=== PATIENT | male | born 1955 | race African-American/Black ===

== ENCOUNTER 2021-04-15 17:15 | Inpatient (IN) | payer MEDICARE, MEDICAID ==
[~2021-04-15] VITALS: Ht 190.5 cm; Wt 96.2 kg
[2021-04-15] MEDS ORDERED: ACETAMINOPHEN 325MG TABLET PO STA (19:27)
[2021-04-15] MEDS ORDERED: SODIUM CHLORIDE 0.9% 1000ML BAG (SEPSIS BOLUS) IV ONE (19:30)
[2021-04-15] MEDS ORDERED: PIPERACILLIN/TAZ 3.375G PREMIX 50 ML IV ONE (19:30)
[2021-04-15] MEDS ORDERED: VANCOMYCIN 1 G PREMIX 200 ML IV ONE (19:30)
[2021-04-15 19:55] LABS: BG BASE EXCESS -1.1 mmol/L (-2.0-2.0); BG CARBOXYHEMOGLOBIN 0.7 % (0.5-1.5); BG DEOXYHEMOGLOBIN 3.2 % (0.0-5.0); BG HCO3 ACT 23.3 mmol/L (22.0-26.0); BG METHEMOGLOBIN 0.3 % (0.0-1.5); BG OXYGEN SATURATION 96.8 % (92.0-98.5); BG OXYHEMOGLOBIN 95.8 % (94.0-97.0); BG PCO2 37.4 mmHg (35.0-45.0); BG PH 7.413 (7.350-7.450); BG TOTAL HEMOGLOBIN 8.1 g/dL (12.0-18.0)
[2021-04-15 20:13] LABS: CLARITY URINE TURBID (CLEAR); COLOR URINE DARK YELLOW (YELLOW); KETONES URINE 1+ (NEGATIVE); LEUKOCYTE ESTERASE URINE 3+ (NEGATIVE); NITRITE URINE NEGATIVE (NEGATIVE); OCCULT BLOOD URINE 2+ (NEGATIVE); PROTEIN URINE 2+ (NEGATIVE); SPECIFIC GRAVITY URINE 1.024 (1.005-1.030)
[2021-04-15 21:04] LABS: BASOPHILS % 0.5 % (0.0-2.0); EOSINOPHILS % 0.1 % (0.0-5.0); HEMATOCRIT. 22.8 % (42.0-52.0); HEMOGLOBIN. 7.4 g/dL (14.0-18.0); LYMPHOCYTES % 9.3 % (20.0-50.0); MEAN CORPUSCULAR HEMOGLOBIN 25.4 pg (28.0-32.0); MEAN CORPUSCULAR VOLUME 78.6 fL (80.0-94.0); MONOCYTES % 13.5 % (2.0-8.0); NEUTROPHILS % 76.6 % (40.0-76.0); PLATELET 223 x1000/uL (130-400); RED CELL DISTRIBUTION WIDTH 16.3 % (11.6-14.6)
[2021-04-15 21:15] LABS: CHLORIDE 102 mEq/L (98-107)
[2021-04-15 21:22] LABS: INR 1.2; PROTHROMBIN TIME 12.5 sec (9.6-11.0)
[2021-04-15 21:23] LABS: CREATINE KINASE 98 IU/L (39-308)
[2021-04-15 21:33] LABS: C REACTIVE PROTEIN QUANT > 190.0 mg/L (0.0-3.0)
[2021-04-15 21:38] LABS: PLATELET ESTIMATE NORMAL
[2021-04-15] MEDS ORDERED: SODIUM CHLORIDE 0.9% 100 ML IV ONE (21:45)
[2021-04-15] MEDS ORDERED: ACYCLOVIR INJ 750 MG in DEXT 5% WATER 100 ML IV SCH (23:00)
[2021-04-15] MEDS ORDERED: ACETAMINOPHEN 650MG SUPP PR PRN (23:15)
[2021-04-15] MEDS ORDERED: ALBUMIN HUMAN 25GM/100ML (25%) IV PRN ×2 (23:15→23:45)
[2021-04-15] MEDS ORDERED: ONDANSETRON HCL 4MG/2ML INJ IV PRN (23:15)
[2021-04-15] MEDS ORDERED: IPRATROPIUM/ALBUTEROL 0.5-3(2.5)MG/3ML NEB NEB PRN (23:15)
[2021-04-15] MEDS: LACTATED RINGERS 1,000 ML IV SCH (23:31)
[2021-04-16 03:56] LABS: BASOPHILS % 0.4 % (0.0-2.0); EOSINOPHILS % 1.5 % (0.0-5.0); HEMATOCRIT. 22.3 % (42.0-52.0); HEMOGLOBIN. 7.2 g/dL (14.0-18.0); LYMPHOCYTES % 13.1 % (20.0-50.0); MEAN CORPUSCULAR HEMOGLOBIN 25.7 pg (28.0-32.0); MEAN CORPUSCULAR VOLUME 79.7 fL (80.0-94.0); MEAN PLATELET VOLUME 7.7 fl (7.4-10.4); MONOCYTES % 12.9 % (2.0-8.0); NEUTROPHILS % 72.1 % (40.0-76.0); PLATELET 173 x1000/uL (130-400); RED BLOOD CELL COUNT 2.79 mill/uL (4.7-6.1); RED CELL DISTRIBUTION WIDTH 16.7 % (11.6-14.6)
[2021-04-16] MEDS: PIPERACILLIN/TAZOBACTAM 3.375 G in DEXTROSE 5% WATER 50 ML IV SCH ×2 (04:11→14:29)
[2021-04-16 04:59] LABS: CREATINE KINASE 89 IU/L (39-308)
[2021-04-16 05:00] LABS: HDL CHOLESTEROL 16 mg/dL (40-59); LDL CHOLESTEROL 28 mg/dL (5-100)
[2021-04-16] MEDS ORDERED: VANCOMYCIN 750 MG PREMIX 150 ML IV NR (10:00)
[2021-04-16] MEDS: LACTATED RINGERS 1,000 ML IV SCH (11:22)
[2021-04-16] MEDS ORDERED: AMIKACIN 500MG in SODIUM CHLORIDE 0.9% 100ML IV NR (20:30)
[2021-04-16] MEDS ORDERED: HYDRALAZINE 20MG/ML VIAL IV PRN (23:00)
[2021-04-16 23:20] LABS: CREATINE KINASE 340 IU/L (39-308)
[2021-04-16 23:24] LABS: CREATINE KINASE MB FRACTION 1.6 ng/mL (0.5-3.6)
[2021-04-17] VITALS (9 sets, daily range): BP systolic 94–185; BP diastolic 45–97
[2021-04-17] MEDS: LACTATED RINGERS 1,000 ML IV SCH (00:58)
[2021-04-17] MEDS: PIPERACILLIN/TAZOBACTAM 3.375 G in DEXTROSE 5% WATER 50 ML IV SCH ×3 (04:16→18:05)
[2021-04-17 05:37] LABS: CHLORIDE 106 mEq/L (98-107)
[2021-04-17] MEDS: AMLODIPINE 5MG TABLET PO SCH (11:36)
[2021-04-17] MEDS: VANCOMYCIN 750 MG PREMIX 150 ML IV SCH ×2 (11:36→23:31)
[2021-04-17] MEDS: METHYLPREDNISOLONE SOD SUCC 40 MG/ML VIAL IV SCH ×3 (11:36→23:31)
[2021-04-17] MEDS: LORAZEPAM 0.5MG TABLET PO PRN ×2 (12:11→18:29)
[2021-04-17] MEDS ORDERED: IPRATROPIUM/ALBUTEROL 0.5-3(2.5)MG/3ML NEB HHN SCH (16:00)
[2021-04-17] MEDS: CLONIDINE 0.1MG TABLET PO PRN (18:29)
[2021-04-17] MEDS: IPRATROPIUM/ALBUTEROL 0.5-3(2.5)MG/3ML NEB HHN SCH (21:47)
[2021-04-18] VITALS (12 sets, daily range): BP systolic 121–161; BP diastolic 66–93
[2021-04-18] MEDS: IPRATROPIUM/ALBUTEROL 0.5-3(2.5)MG/3ML NEB HHN SCH ×5 (01:26→16:53)
[2021-04-18] MEDS: PIPERACILLIN/TAZOBACTAM 3.375 G in DEXTROSE 5% WATER 50 ML IV SCH ×4 (02:16→23:06)
[2021-04-18] MEDS: METHYLPREDNISOLONE SOD SUCC 40 MG/ML VIAL IV SCH ×3 (05:33→23:05)
[2021-04-18 06:40] LABS: HEMATOCRIT. 25.6 % (42.0-52.0); HEMOGLOBIN. 8.5 g/dL (14.0-18.0); MEAN CORPUSCULAR HEMOGLOBIN 25.7 pg (28.0-32.0); MEAN CORPUSCULAR VOLUME 77.7 fL (80.0-94.0); MEAN PLATELET VOLUME 8.1 fl (7.4-10.4); PLATELET 330 x1000/uL (130-400); RED BLOOD CELL COUNT 3.29 mill/uL (4.7-6.1); RED CELL DISTRIBUTION WIDTH 16.7 % (11.6-14.6)
[2021-04-18 06:43] LABS: CHLORIDE 104 mEq/L (98-107)
[2021-04-18 06:53] LABS: PHOSPHORUS 3.3 mg/dL (2.5-4.9)
[2021-04-18 06:55] LABS: HAPTOGLOBIN 357 mg/dL (30-200)
[2021-04-18] MEDS: VANCOMYCIN 750 MG PREMIX 150 ML IV SCH ×2 (09:20→20:13)
[2021-04-18] MEDS: AMLODIPINE 5MG TABLET PO SCH (09:21)
[2021-04-18] MEDS ORDERED: RISPERIDONE 0.25MG TABLET PO SCH (10:00)
[2021-04-18 10:58] LABS: BG CARBOXYHEMOGLOBIN 0.5 % (0.5-1.5); BG DEOXYHEMOGLOBIN 6.7 % (0.0-5.0); BG HCO3 ACT 17.2 mmol/L (22.0-26.0); BG METHEMOGLOBIN 0.4 % (0.0-1.5); BG OXYGEN SATURATION 93.2 % (92.0-98.5); BG OXYHEMOGLOBIN 92.4 % (94.0-97.0); BG PCO2 26.2 mmHg (35.0-45.0); BG PH 7.434 (7.350-7.450); BG PO2 67.2 mmHg (75.0-100.0); BG SAMPLE SITE LEFT RADIAL; BG TOTAL HEMOGLOBIN 9.6 g/dL (12.0-18.0); BG VENT MODE ROOM AIR
[2021-04-18 14:38] LABS: PLATELET ESTIMATE NORMAL
[2021-04-18] MEDS: RISPERIDONE 0.25MG TABLET PO SCH (20:13)
[2021-04-18] MEDS: CLONIDINE 0.1MG TABLET PO PRN (20:18)
[2021-04-19] VITALS (11 sets, daily range): BP systolic 122–154; BP diastolic 62–79
[2021-04-19] MEDS: PIPERACILLIN/TAZOBACTAM 3.375 G in DEXTROSE 5% WATER 50 ML IV SCH ×3 (05:50→21:17)
[2021-04-19] MEDS: METHYLPREDNISOLONE SOD SUCC 40 MG/ML VIAL IV SCH (05:50)
[2021-04-19 06:03] LABS: HEMATOCRIT. 25.2 % (42.0-52.0); HEMOGLOBIN. 8.1 g/dL (14.0-18.0); MEAN CORPUSCULAR HEMOGLOBIN 25.2 pg (28.0-32.0); MEAN CORPUSCULAR VOLUME 78.2 fL (80.0-94.0); MEAN PLATELET VOLUME 7.7 fl (7.4-10.4); PLATELET 353 x1000/uL (130-400); RED BLOOD CELL COUNT 3.22 mill/uL (4.7-6.1); RED CELL DISTRIBUTION WIDTH 17.3 % (11.6-14.6)
[2021-04-19 06:13] LABS: CHLORIDE 106 mEq/L (98-107)
[2021-04-19 06:20] LABS: PHOSPHORUS 3.3 mg/dL (2.5-4.9)
[2021-04-19 07:15] LABS: PLATELET ESTIMATE NORMAL
[2021-04-19] MEDS ORDERED: DEXTROSE 50% WATER 50ML SYRINGE IV PRN (07:15)
[2021-04-19] MEDS: BLOOD SUGAR DIAGNOSTIC STRIP TEST SCH ×4 (08:10→20:33)
[2021-04-19] MEDS: AMLODIPINE 5MG TABLET PO SCH (08:30)
[2021-04-19] MEDS: RISPERIDONE 0.25MG TABLET PO SCH ×2 (08:30→17:49)
[2021-04-19] MEDS: VANCOMYCIN 750 MG PREMIX 150 ML IV SCH (08:31)
[2021-04-19] MEDS: INSULIN LISPRO 100 UNITS/ML SUBCUT SCH ×4 (08:32→20:32)
[2021-04-19] MEDS: IPRATROPIUM/ALBUTEROL 0.5-3(2.5)MG/3ML NEB HHN SCH ×5 (08:50→23:53)
[2021-04-19] MEDS ORDERED: METHYLPREDNISOLONE SOD SUCC 40 MG/ML VIAL IV SCH (21:00)
[2021-04-19] MEDS ORDERED: VANCOMYCIN 1250MG in DEXTROSE 5% WATER 250ML IV SCH (21:00)
[2021-04-19] MEDS ORDERED: INSULIN GLARGINE UD 100 UNITS/ML SYR SUBCUT SCH (22:00)
[2021-04-20] VITALS (12 sets, daily range): BP systolic 126–157; BP diastolic 57–80
[2021-04-20] MEDS: IPRATROPIUM/ALBUTEROL 0.5-3(2.5)MG/3ML NEB HHN SCH ×5 (03:56→20:44)
[2021-04-20] MEDS: PIPERACILLIN/TAZOBACTAM 3.375 G in DEXTROSE 5% WATER 50 ML IV SCH ×3 (05:14→23:30)
[2021-04-20] MEDS: BLOOD SUGAR DIAGNOSTIC STRIP TEST SCH ×4 (06:24→21:19)
[2021-04-20] MEDS: INSULIN LISPRO 100 UNITS/ML SUBCUT SCH ×5 (07:40→21:22)
[2021-04-20 08:50] LABS: HEMOGLOBIN. 8.1 g/dL (14.0-18.0); LYMPHOCYTES % 8.4 % (20.0-50.0); MEAN CORPUSCULAR HEMOGLOBIN 24.4 pg (28.0-32.0); MEAN CORPUSCULAR VOLUME 78.1 fL (80.0-94.0); MEAN PLATELET VOLUME 7.6 fl (7.4-10.4); MONOCYTES % 8.7 % (2.0-8.0); NEUTROPHILS % 82.9 % (40.0-76.0); PLATELET 373 x1000/uL (130-400); RED BLOOD CELL COUNT 3.34 mill/uL (4.7-6.1); RED CELL DISTRIBUTION WIDTH 17.5 % (11.6-14.6)
[2021-04-20 08:58] LABS: CHLORIDE 111 mEq/L (98-107)
[2021-04-20] MEDS: AMLODIPINE 5MG TABLET PO SCH (08:58)
[2021-04-20] MEDS: RISPERIDONE 0.25MG TABLET PO SCH ×2 (08:59→17:09)
[2021-04-20] MEDS: PREDNISONE 20MG TABLET PO SCH (08:59)
[2021-04-20 09:04] LABS: PHOSPHORUS 2.6 mg/dL (2.5-4.9)
[2021-04-20] MEDS: INSULIN GLARGINE UD 100 UNITS/ML SYR SUBCUT SCH ×2 (10:19→21:23)
[2021-04-20] MEDS ORDERED: POTASSIUM CHLORIDE 20MEQ TABLET SR PO NR (18:15)
[2021-04-21] VITALS (13 sets, daily range): BP systolic 129–156; BP diastolic 55–84
[2021-04-21] MEDS: IPRATROPIUM/ALBUTEROL 0.5-3(2.5)MG/3ML NEB HHN SCH ×6 (00:57→21:32)
[2021-04-21 06:44] LABS: BASOPHILS % 0.1 % (0.0-2.0); EOSINOPHILS % 0.1 % (0.0-5.0); HEMATOCRIT. 26.1 % (42.0-52.0); HEMOGLOBIN. 8.4 g/dL (14.0-18.0); MEAN CORPUSCULAR HEMOGLOBIN 25.3 pg (28.0-32.0); MEAN CORPUSCULAR VOLUME 78.4 fL (80.0-94.0); MEAN PLATELET VOLUME 7.6 fl (7.4-10.4); MONOCYTES % 10.5 % (2.0-8.0); NEUTROPHILS % 77.3 % (40.0-76.0); PLATELET 449 x1000/uL (130-400); RED BLOOD CELL COUNT 3.33 mill/uL (4.7-6.1); RED CELL DISTRIBUTION WIDTH 16.9 % (11.6-14.6)
[2021-04-21] MEDS: BLOOD SUGAR DIAGNOSTIC STRIP TEST SCH ×4 (06:49→21:45)
[2021-04-21 07:20] LABS: CHLORIDE 113 mEq/L (98-107)
[2021-04-21 07:26] LABS: PHOSPHORUS 2.6 mg/dL (2.5-4.9)
[2021-04-21] MEDS: PREDNISONE 20MG TABLET PO SCH (08:11)
[2021-04-21] MEDS: AMLODIPINE 5MG TABLET PO SCH (08:11)
[2021-04-21] MEDS: RISPERIDONE 0.25MG TABLET PO SCH ×2 (08:11→21:43)
[2021-04-21] MEDS: INSULIN LISPRO 100 UNITS/ML SUBCUT SCH ×5 (08:11→21:45)
[2021-04-21] MEDS: INSULIN GLARGINE UD 100 UNITS/ML SYR SUBCUT SCH ×2 (10:53→21:44)
[2021-04-21] MEDS ORDERED: P20 MT (11:23)
[2021-04-21] MEDS ORDERED: LANTUSUD SUBCUT (11:25)
[2021-04-21] MEDS ORDERED: AMLO5TAB88 PO (11:25)
[2021-04-21] MEDS ORDERED: ACETAMINOPHEN 650MG/20.3ML UDC PO PRN (11:45)
[2021-04-21] MEDS: DEXTROSE 5% WATER 1,000 ML IV SCH (12:30)
[2021-04-21] MEDS ORDERED: INSULIN GLARGINE UD 100 UNITS/ML SYR SUBCUT SCH (13:00)
[2021-04-22] VITALS (14 sets, daily range): BP systolic 105–151; BP diastolic 47–85
[2021-04-22] MEDS: DEXTROSE 5% WATER 1,000 ML IV SCH (00:38)
[2021-04-22] MEDS: IPRATROPIUM/ALBUTEROL 0.5-3(2.5)MG/3ML NEB HHN SCH ×4 (00:59→20:28)
[2021-04-22] MEDS: BLOOD SUGAR DIAGNOSTIC STRIP TEST SCH ×4 (07:28→21:18)
[2021-04-22 07:45] LABS: BASOPHILS % 0.1 % (0.0-2.0); EOSINOPHILS % 0.3 % (0.0-5.0); HEMATOCRIT. 27.5 % (42.0-52.0); HEMOGLOBIN. 8.7 g/dL (14.0-18.0); LYMPHOCYTES % 9.7 % (20.0-50.0); MEAN CORPUSCULAR HEMOGLOBIN 24.9 pg (28.0-32.0); MEAN CORPUSCULAR VOLUME 78.6 fL (80.0-94.0); MEAN PLATELET VOLUME 7.6 fl (7.4-10.4); MONOCYTES % 7.4 % (2.0-8.0); NEUTROPHILS % 82.5 % (40.0-76.0); PLATELET 385 x1000/uL (130-400); RED CELL DISTRIBUTION WIDTH 17.3 % (11.6-14.6)
[2021-04-22] MEDS ORDERED: DILTIAZEM HCL 5MG/ML 5ML VIAL IV NR (08:00)
[2021-04-22 08:02] LABS: CHLORIDE 110 mEq/L (98-107)
[2021-04-22] MEDS: AMLODIPINE 5MG TABLET PO SCH (08:06)
[2021-04-22 08:08] LABS: PHOSPHORUS 3.2 mg/dL (2.5-4.9)
[2021-04-22] MEDS ORDERED: LIDOCAINE HCL 1% 30ML VIAL (10MG/ML) ONE (08:09)
[2021-04-22] MEDS: PREDNISONE 20MG TABLET PO SCH (08:11)
[2021-04-22] MEDS: INSULIN LISPRO 100 UNITS/ML SUBCUT SCH ×4 (08:12→21:17)
[2021-04-22] MEDS ORDERED: DILTIAZEM HCL 125 MG in DEXT 5% WATER 100 ML IV SCH ×2 (09:00→09:14)
[2021-04-22 09:04] LABS: BG BASE EXCESS 2.5 mmol/L (-2.0-2.0); BG CARBOXYHEMOGLOBIN 0.3 % (0.5-1.5); BG DEOXYHEMOGLOBIN 1.6 % (0.0-5.0); BG HCO3 ACT 25.8 mmol/L (22.0-26.0); BG METHEMOGLOBIN 0.1 % (0.0-1.5); BG OXYGEN SATURATION 98.4 % (92.0-98.5); BG PCO2 35.1 mmHg (35.0-45.0); BG PH 7.485 (7.350-7.450); BG PO2 121.2 mmHg (75.0-100.0); BG SAMPLE SITE RIGHT RADIAL; BG VENT MODE NASAL CANNULA
[2021-04-22] MEDS: ASPIRIN 81MG EC TABLET PO SCH (10:35)
[2021-04-22] MEDS: METOPROLOL TARTRATE 25MG TABLET PO SCH ×2 (10:35→21:16)
[2021-04-22] MEDS: INSULIN GLARGINE UD 100 UNITS/ML SYR SUBCUT SCH ×2 (10:35→21:18)
[2021-04-22] MEDS ORDERED: POTASSIUM CHLORIDE INJ 40 MEQ in DEXT 5% WATER 250 ML IV SCH (11:00)
[2021-04-22] MEDS ORDERED: DEXT 5% WATER + KCL 40MEQ/L 1,000 ML IV SCH (11:45)
[2021-04-22] MEDS: POTASSIUM CHLORIDE INJ 40 MEQ in DEXTROSE 5% WATER 1,000 ML IV SCH (17:36)
[2021-04-22] MEDS: RISPERIDONE 0.25MG TABLET PO SCH (21:16)
[2021-04-23] VITALS (10 sets, daily range): BP systolic 117–140; BP diastolic 55–75
[2021-04-23] MEDS: IPRATROPIUM/ALBUTEROL 0.5-3(2.5)MG/3ML NEB HHN SCH ×5 (00:21→16:04)
[2021-04-23 06:53] LABS: HEMATOCRIT. 27.5 % (42.0-52.0); HEMOGLOBIN. 8.7 g/dL (14.0-18.0); MEAN CORPUSCULAR HEMOGLOBIN 25.1 pg (28.0-32.0); MEAN CORPUSCULAR VOLUME 79.4 fL (80.0-94.0); PLATELET 348 x1000/uL (130-400); RED BLOOD CELL COUNT 3.47 mill/uL (4.7-6.1); RED CELL DISTRIBUTION WIDTH 17.4 % (11.6-14.6)
[2021-04-23] MEDS: INSULIN LISPRO 100 UNITS/ML SUBCUT SCH ×3 (07:20→16:41)
[2021-04-23] MEDS: BLOOD SUGAR DIAGNOSTIC STRIP TEST SCH ×3 (07:38→16:26)
[2021-04-23 07:49] LABS: CHLORIDE 105 mEq/L (98-107)
[2021-04-23 08:01] LABS: PHOSPHORUS 3.2 mg/dL (2.5-4.9)
[2021-04-23] MEDS: METOPROLOL TARTRATE 25MG TABLET PO SCH (09:08)
[2021-04-23] MEDS: ASPIRIN 81MG EC TABLET PO SCH (09:08)
[2021-04-23] MEDS: PREDNISONE 20MG TABLET PO SCH (09:08)
[2021-04-23] MEDS ORDERED: POTASSIUM CHLORIDE 20MEQ TABLET SR PO SCH (10:00)
[2021-04-23] MEDS ORDERED: LANTUSUD SUBCUT (10:11)
[2021-04-23] MEDS ORDERED: METO25TA6 PO (10:11)
[2021-04-23] MEDS ORDERED: RISP0.2514 MT (10:11)
[2021-04-23] MEDS ORDERED: ASPI-1406 PO (10:11)
[2021-04-23] MEDS: INSULIN GLARGINE UD 100 UNITS/ML SYR SUBCUT SCH (10:35)
[2021-04-23] MEDS: POTASSIUM CHLORIDE INJ 40 MEQ in DEXTROSE 5% WATER 1,000 ML IV SCH (11:03)
[2021-04-23 12:53] LABS: PLATELET ESTIMATE NORMAL
[2021-04-23 13:42] LABS: BG BASE EXCESS 1.5 mmol/L (-2.0-2.0); BG CARBOXYHEMOGLOBIN 0.1 % (0.5-1.5); BG DEOXYHEMOGLOBIN 1.9 % (0.0-5.0); BG FRACTION INSPIRED OXYGEN 36; BG HCO3 ACT 25.5 mmol/L (22.0-26.0); BG METHEMOGLOBIN 0.3 % (0.0-1.5); BG OXYGEN SATURATION 98.1 % (92.0-98.5); BG OXYHEMOGLOBIN 97.7 % (94.0-97.0); BG PCO2 37.9 mmHg (35.0-45.0); BG PH 7.446 (7.350-7.450); BG PO2 107.2 mmHg (75.0-100.0); BG SAMPLE SITE RIGHT RADIAL; BG TOTAL HEMOGLOBIN 10.5 g/dL (12.0-18.0); BG VENT MODE NASAL CANNULA
== END 2021-04-23 20:21 | DRG 871 ==
LOC: ER 17:15 → MICUSO 22:56 → EDBEDREQSVC 23:23 → EDBEDREQTM 23:23 → EDBEDREQ 23:23 → 3WST 04-17 07:58
PROVIDERS: ADMIT Internal Medicine; ATTEND Internal Medicine
PROC: 02HV33Z Insertion of Infusion Device into Superior Vena Cava, Percutaneous Approach (ICD-10-PCS; principal; 2021-04-22)
PROC: B548ZZA Ultrasonography of Superior Vena Cava, Guidance (ICD-10-PCS; 2021-04-22)
DX: A41.59 Other Gram-negative sepsis (principal); J96.00 Acute respiratory failure, unspecified whether with hypoxia or hypercapnia; R65.21 Severe sepsis with septic shock; E43 Unspecified severe protein-calorie malnutrition; G93.41 Metabolic encephalopathy; J18.9 Pneumonia, unspecified organism; I42.9 Cardiomyopathy, unspecified; J44.0 Chronic obstructive pulmonary disease with (acute) lower respiratory infection; N17.9 Acute kidney failure, unspecified; N39.0 Urinary tract infection, site not specified; I47.1 Supraventricular tachycardia; E87.0 Hyperosmolality and hypernatremia; D50.9 Iron deficiency anemia, unspecified; Z20.822 Contact with and (suspected) exposure to COVID-19; B96.1 Klebsiella pneumoniae [K. pneumoniae] as the cause of diseases classified elsewhere; E11.65 Type 2 diabetes mellitus with hyperglycemia; E87.6 Hypokalemia; E83.42 Hypomagnesemia; G93.89 Other specified disorders of brain; E78.5 Hyperlipidemia, unspecified; F03.90 Unspecified dementia, unspecified severity, without behavioral disturbance, psychotic disturbance, mood disturbance, and anxiety; D72.821 Monocytosis (symptomatic); R31.9 Hematuria, unspecified; I12.9 Hypertensive chronic kidney disease with stage 1 through stage 4 chronic kidney disease, or unspecified chronic kidney disease; E11.22 Type 2 diabetes mellitus with diabetic chronic kidney disease; N18.9 Chronic kidney disease, unspecified; I48.91 Unspecified atrial fibrillation; D63.8 Anemia in other chronic diseases classified elsewhere; Z74.01 Bed confinement status; Z82.49 Family history of ischemic heart disease and other diseases of the circulatory system; Z68.26 Body mass index [BMI] 26.0-26.9, adult
CPT/HCPCS: 36415; 36600; 71045; 71250; 72141; 72146; 72148; 76770; 76937; 80048; 80053; 80061; 80202; 81003; 82375; 82550; 82553; 82728; 82805; 82962; 83010; 83036; 83540; 83550; 83605; 83615; 83735; 83880; 84100; 84145; 84443; 84484; 85025; 85044; 86140; 87077; 87186; 92610; 93005; 93306; 93970; 94640; 99291; C1725; C1893; J0133; J0278; J0360; J1815; J2543; J2920; J3370; J3480; J3490; J7030; J7040; J7050; J7060; J7070; J7512; U0003; U0005

== ENCOUNTER 2021-05-21 18:45 | Inpatient (IN) | payer MEDICARE, MEDICAID ==
[~2021-05-21] VITALS: Ht 172.7 cm; Wt 70.0 kg
[~2021-05-21 18:45] MED LIST: AMLO5TAB88 PO; ASPI-1406 PO; ETOMIDATE 2MG/ML 10ML VIAL IV ONE; LANTUSUD SUBCUT; METO25TA6 PO; RISP0.2514 MT; VECURONIUM BROMIDE 10 MG/VIAL IV ONE
[2021-05-21] MEDS ORDERED: PIPERACILLIN/TAZ 3.375G PREMIX 50 ML IV ONE (19:00)
[2021-05-21] MEDS ORDERED: VANCOMYCIN 1 G PREMIX 200 ML IV ONE (19:00)
[2021-05-21] MEDS ORDERED: SODIUM CHLORIDE 0.9% 1,000 ML IV ONE (19:00)
[2021-05-21] MEDS ORDERED: SODIUM CHLORIDE 0.9% 1000ML BAG (SEPSIS BOLUS) IV ONE (19:15)
[2021-05-21] MEDS ORDERED: NOREPINEPHRINE 8 MG in DEXT 5% WATER 242 ML IV PRN (19:30)
[2021-05-21 19:54] LABS: HEMATOCRIT. 31.9 % (42.0-52.0); HEMOGLOBIN. 9.7 g/dL (14.0-18.0); MEAN CORPUSCULAR HEMOGLOBIN 22.7 pg (28.0-32.0); MEAN CORPUSCULAR VOLUME 74.9 fL (80.0-94.0); MEAN PLATELET VOLUME 8.5 fl (7.4-10.4); PLATELET 596 x1000/uL (130-400); RED BLOOD CELL COUNT 4.25 mill/uL (4.7-6.1); RED CELL DISTRIBUTION WIDTH 18.1 % (11.6-14.6)
[2021-05-21 20:00] LABS: CHLORIDE 104 mEq/L (98-107)
[2021-05-21] MEDS ORDERED: NOREPINEPHRINE 8MG/250ML PMX 250 ML IV NR (20:00)
[2021-05-21 20:08] LABS: CREATINE KINASE 57 IU/L (39-308)
[2021-05-21 20:10] LABS: PLATELET ESTIMATE INCREASED
[2021-05-21] MEDS ORDERED: PROPOFOL 10MG/ML 100ML 100 ML IV SCH (20:30)
[2021-05-21] MEDS ORDERED: FENTANYL CITRATE/PF 1,000 MCG in SODIUM CHLORIDE 0.9% 80 ML IV PRN (20:30)
[2021-05-21] MEDS ORDERED: FENTANYL CITRATE 2,500 MCG in SODIUM CHLORIDE 0.9% 200 ML IV PRN (20:45)
[2021-05-21] MEDS ORDERED: ALBUTEROL (0.083%) 2.5MG/3ML NEB HHN NR (21:30)
[2021-05-21] MEDS ORDERED: INSULIN REGULAR (HUMULIN R) 300UNITS/3ML VIAL IV NR (21:30)
[2021-05-21] MEDS ORDERED: ETOMIDATE 2MG/ML 10ML VIAL IV ONE (22:45)
[2021-05-21] MEDS ORDERED: VECURONIUM BROMIDE 10 MG/VIAL IV ONE (22:45)
[2021-05-22] VITALS: BP 89/19
== END 2021-05-22 00:30 | DRG 871 ==
LOC: ER 18:45 → MICUSO 21:21 → EDBEDREQTM 21:43 → EDBEDREQ 21:43
PROVIDERS: ADMIT Internal Medicine; ATTEND Internal Medicine
PROC: 02HV33Z Insertion of Infusion Device into Superior Vena Cava, Percutaneous Approach (ICD-10-PCS; principal; 2021-05-21)
PROC: B548ZZA Ultrasonography of Superior Vena Cava, Guidance (ICD-10-PCS; 2021-05-21)
PROC: 0BH17EZ Insertion of Endotracheal Airway into Trachea, Via Natural or Artificial Opening (ICD-10-PCS; 2021-05-21)
PROC: 5A1935Z Respiratory Ventilation, Less than 24 Consecutive Hours (ICD-10-PCS; 2021-05-21)
DX: A41.9 Sepsis, unspecified organism (principal); R65.21 Severe sepsis with septic shock; E11.9 Type 2 diabetes mellitus without complications; F03.90 Unspecified dementia, unspecified severity, without behavioral disturbance, psychotic disturbance, mood disturbance, and anxiety; F20.9 Schizophrenia, unspecified; I10 Essential (primary) hypertension; J44.9 Chronic obstructive pulmonary disease, unspecified; Z86.73 Personal history of transient ischemic attack (TIA), and cerebral infarction without residual deficits; Z79.82 Long term (current) use of aspirin; Z79.4 Long term (current) use of insulin; Z79.899 Other long term (current) drug therapy
CPT/HCPCS: 36415; 71045; 80053; 80307; 80329; 82550; 82962; 83605; 83880; 84145; 84484; 85025; 87077; 87186; 94002; 99291; J2543; J2704; J3370; J3490; J7030